=== PATIENT | female | born 2005 | race Caucasian/White ===

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

== ENCOUNTER 2024-04-25 20:25 | Emergency (ER) | payer OTHER, SELFPAY ==
[2024-04-25 20:29] VITALS: RESP 14
[2024-04-25 20:35] VITALS: BP 144/68; PULSE 99; RESP 14; TEMP 36.4; O2SAT 98
[2024-04-25 20:40] LABS: Bilirubin Negative (Negative); Blood Trace-intact (Negative); Clarity Clear (Clear); Glucose Negative (Negative); Ketones Negative (Negative); Leukocyte Esterase Negative (Negative); Nitrite Negative (Negative); Urobilinogen 0.2 mg/dL (Up to 0.2)
[2024-04-25 20:47] LABS: Bacteria Negative HPF (Negative); C & S Indicated? No; Casts Negative LPF (Negative); Crystals Negative HPF (Negative); Epithelial Cells Rare HPF (Negative); Mucus Negative (Negative); RBC 0-2 HPF (0-2); WBC 0-2 HPF (0-5)
--- NOTE | 2024-04-26 17:50 | W.ED.GENAD ---
Discharge Plan Disposition Patient Disposition: Home Condition: Stable Discharge Details Clinical Impression: Dysuria Primary Care Provider: Issac Lara ED Provider: Ladi Mcgill Home Meds and New Rx's Prescriptions: New cephalexin 500 mg capsule 500 mg PO Q6H 7 Days Qty: 28 0RF phenazopyridine [Pyridium] 200 mg tablet 200 mg PO QPC PRN4 Days Qty: 4 0RF Continued nitrofurantoin monohyd/m-cryst [Macrobid] 100 mg capsule 100 mg PO ONCE Qty: 60 2RF Rx Instructions: Postcoital, as needed Kyleena 17.5 mcg/24 hrs (5 yrs) 19.5 mg intrauterine device 1 device intrauterine ONCE Qty: 1 0RF Rx Instructions: as a single dose Discharge Instructions Instructions: Dysuria (ED) Additional Instructions: Please take the Pyridium as needed for discomfort If you start having worsening symptoms tomorrow, chills, or back pain please start taking the antibiotic, your urine culture will take 24 to 48 hours to return You have STD swabs will return within 72 hours will contact you regarding results, please also follow-up with urology at this point in women's health again for reassessment Return earlier should you have new or worsening complaints Referrals: Hadley Irby MD [ [facility] STAFF PHYSICIAN] - 2 days Discharge Data Discharge Date/Time-TO BE ENTERED AT DEPARTURE: 04/25/24 22:21 HPI General Date/Time Provider Initiated Documentation: 04/25/24 20:30. HPI Narrative: This 18-year-old female presents with report of urinary frequency and burning which started abruptly this afternoon. Patient states her symptoms are similar to her prior episodes of urinary tract infections in the past. Denies any flank pain fever or chills. Denies any nausea or vomiting. Related Data Home Medications ?Medication ?Instructions ?Recorded ?Confirmed levonorgestrel 17.5 mcg/24 hr (up 1 device intrauterine ONCE #1 ea 10/09/23 04/25/24 to 5 yrs) 19.5mg intrauterine device (Kyleena) nitrofurantoin 100 mg PO ONCE #60 caps 11/18/23 04/25/24 monohydrate/macrocrystals 100 mg capsule (Macrobid) cephalexin 500 mg capsule 500 mg PO Q6H 7 days #28 caps 04/25/24 phenazopyridine 200 mg tablet 200 mg PO QPC PRN 4 days #4 tabs 04/25/24 (Pyridium) Previous Rx's ?Medication ?Instructions ?Recorded levonorgestrel 17.5 mcg/24 hr (up 1 device intrauterine ONCE #1 ea 10/09/23 to 5 yrs) 19.5mg intrauterine device (Kyleena) nitrofurantoin 100 mg PO ONCE #60 caps 11/18/23 monohydrate/macrocrystals 100 mg capsule (Macrobid) cephalexin 500 mg capsule 500 mg PO Q6H 7 days #28 caps 04/25/24 phenazopyridine 200 mg tablet 200 mg PO QPC PRN 4 days #4 tabs 04/25/24 (Pyridium) Allergies Allergy/AdvReac Type Severity Reaction Status Date / Time No Known Allergies Allergy Verified 04/25/24 20:42 General Stated Complaint: Urinary ARELI: 4 Exam Narrative Exam Narrative: Alert, oriented, pleasant 18-year-old female in no acute distress, no CVA tenderness, mild suprapubic tenderness, overall benign abdominal exam, genitourinary exam performed without any significant drainage. No cervical motion tenderness, no obvious rashes or lesions. Course Vital Signs Vital signs: Vital Signs Respiratory Rate 14 04/25/24 20:29 Temperature 36.4 C L 04/25/24 20:35 Temperature Source Temporal Artery Scan 04/25/24 20:35 Pulse 99 H 04/25/24 20:35 Respiratory Rate 14 04/25/24 20:35 Respiratory Effort Normal 04/25/24 20:35 Blood Pressure 144/68 H 04/25/24 20:35 Blood Pressure Position Sitting 04/25/24 20:35 Pulse Oximetry 98 04/25/24 20:35 Oxygen Delivery Method Room Air 04/25/24 20:35 Oxygen Flow Rate 0 04/25/24 20:29 Pain Level 7 04/25/24 20:35 Lab/Test Results Lab/Test Results: 04/25/24 22:10 Vaginal Vaginitis Screen - Final Laboratory Tests Range/Units 04/25/24 20:32 Urine Color (Yellow) Yellow Urine Clarity (Clear) Clear Urine pH (5-8) 6.0 Ur Specific [place] (1.005-1.025) 1.010 Urine Protein (Neg-Trace) mg/dL Negative Urine Ketones (Negative) mg/dL Negative Urine Blood (Negative) Trace-intact H Urine Nitrite (Negative) Negative Urine Bilirubin (Negative) Negative Urine Urobilinogen (Up to 0.2) mg/dL 0.2 Ur Leukocyte Esterase (Negative) Negative Urine RBC (0-2) HPF 0-2 Urine WBC (0-5) HPF 0-2 Ur Epithelial Cells (Negative) HPF Rare Urine Crystals (Negative) HPF Negative Urine Bacteria (Negative) HPF Negative Urine Casts (Negative) LPF Negative Urine Mucus (Negative) Negative Ur Culture Indicated? No Urine Glucose (Negative) mg/dL Negative POC- Test(urine) Negative Medical Decision Making Overall benign exam in this patient presenting with some dysuria and frequency. History of recurrent urinary tract infections, monogamous with a partner of 1 year. Had GC chlamydia testing but no vaginal pathology testing. Pending repeat testing at this time. I did give patient a prescription for Keflex and Pyridium should her symptoms worsen. Will obtain urine culture. Will supply a urology referral with for urinary tract infections in the past year. No evidence of pyelonephritis and abdominal MRI from less than a year ago does not show evidence of an obvious stone. Nontoxic in appearance return precautions reviewed and patient expressed understanding Quality:SDOH Health Related Social Needs: No Data to Display PFSH All Active Problems (Updated 04/25/24 @ 22:08 by BRENDAN Lafleur) Dysuria (Acute) Screening examination for STI (Acute) Encounter for IUD insertion (Acute) Elevated blood pressure reading (Acute) control counseling (Acute) Nausea & vomiting (Acute) GERD (gastroesophageal reflux disease) (Chronic) Contusion of left knee (Acute ~09/2021) Patellofemoral syndrome of left knee (Acute) Social History Smoking/Tobacco Use Status: Never Smoking risk assessment performed?: Yes Alcohol Intake: never Drug use: Never Current gender identity: female
--- NOTE | 2024-04-27 09:28 | NUR.NOTE ---
Lab called stating that the swab used for the GC/chlamydia was not the new one, so it was rejected by [facility]. Dr. Cao notified. Nursing Note:
== END 2024-04-25 22:21 | disposition home or self-care (01) ==
PROVIDERS: Emergency Medicine; Emergency Provider Physician Assistant; PCP Family Medicine
DX: R30.0 Dysuria (principal)
CPT/HCPCS: 36415; 81025; 87491; 87591; 99283; 81003; 81015; 87480; 87510; 87660

== ENCOUNTER 2025-09-27 13:22 | Outpatient (REF) | payer OTHER, SELFPAY | END 2025-09-27 13:23 | disposition home or self-care (01) | LOC: LBN 13:22 | PROVIDERS: PCP Family Medicine; Visit Provider Nurse Practitioner Gerontology | DX: R31.9 Hematuria, unspecified (principal) | CPT/HCPCS: 87077; 87086; 87186 ==